=== PATIENT | male | born 1940 | race Caucasian/White ===

== ENCOUNTER 2024-02-04 16:46 | Emergency (ER) | payer MEDICARE, OTHER ==
[~2024-02-04 16:46] MED LIST: Sodium Chloride 0.9% 100 ML BAG ONE
[2024-02-04 17:08] LABS: #Basophils 0.1 thou/uL (0.0-0.2); #Eosinphils 0.4 thou/uL (0.0-0.7); #Lymphocytes 2.4 thou/uL (1.20-3.40); #Monocytes 0.5 thou/uL (0.11-0.59); #Neutrophils 5.5 thou/uL (1.40-6.50); %Eosinophils 4.6 % (0.0-10.0); %Monocytes 5.7 % (0.0-10.0); %Neutrophils 61.7 % (42.0-75.0); Hemoglobin 14.3 g/dL (14.0-18.0); Mean Corpuscular HGB CONC 32.6 g/dL (32.0-36.0); Mean Corpuscular Hemoglobin 30.8 pg (27.0-31.0); Mean Corpuscular Volume 94.6 fl (78.0-98.0); Mean Platelet Volume 8.6 fL (7.4-10.4); Platelet Count 186 10x3/uL (130-400); RBC Distribution Width 10.8 % (11.5-14.5); Red Blood Cell (RBC) Count 4.66 mill/uL (4.70-6.10); White Blood Cell (WBC) Count 8.8 10x3/uL (4.8-10.8)
[2024-02-04 17:12] LABS: PTT 27.7 sec (22.9-36.1); Prothrombin Time 13.5 sec (12.0-14.7)
[2024-02-04 17:17] LABS: ALT (SGPT) 9 U/L (8-55); AST (SGOT) 13 U/L (5-34); Albumin 4.2 g/dL (3.4-4.8); Alkaline Phosphatase 61 U/L (40-110); Anion Gap 15 mmol/L (10-20); BUN (Urea Nitrogen) 19 mg/dL (8.4-25.7); Bilirubin, Total 0.5 mg/dL (0.2-1.2); Calc. Creatinine Clearance 0 mL/min (70-130); Calcium 9.2 mg/dL (7.8-10.44); Carbon Dioxide 21 mmol/L (23-31); Chloride 105 mmol/L (98-107); Estimated GFR 56; Globulin 2.8 g/dL (2.4-3.5); Glucose 116 mg/dL (83-110); Sodium 137 mmol/L (136-145)
[2024-02-04 17:20] LABS: Troponin I Less than 0.010 ng/mL (< 0.028)
[2024-02-04] MEDS ORDERED: Sodium Chloride 0.9% 250 ML 250 ML ONE (17:20)
[2024-02-04] MEDS ORDERED: niCARdipine 25 MG/10 ML SDV ONE (17:20)
[2024-02-04 18:04] LABS: Bilirubin Negative (Negative); Blood, Urine Trace (Negative); Glucose, Urine (Dipstick) Negative (Negative); Ketone, Urine Negative (Negative); Leukocyte Negative (Negative); Nitrite Negative (Negative); Protein, Urine (Dipstick) 30 mg/dL (Neg-Trace); Urobilinogen 0.2 mg/dL (Less than 2); pH, Urine 7.5 (5.0-9.0)
[2024-02-04 18:07] LABS: Clarity Hazy (Clear)
[2024-02-04 18:10] LABS: Bacteria/HPF Rare-Few HPF (None Seen); CAUTI Indications for Culture Alt mental st,lethar; RBC/HPF 0-3 HPF (0-3); Squamous Epithelial 0-3 HPF (0-3); WBC/HPF None Seen HPF (0-3)
[2024-02-04 18:11] LABS: Urine Culture Reflex No No
[2024-02-04] MEDS ORDERED: Aspirin Chewable 81 MG TAB ONE (18:11)
[2024-02-04 18:14] LABS: Amphetamine Not Detected (NotDetected); Barbiturates Screen Not Detected (NotDetected); Benzodiazepine Screen Not Detected (NotDetected); Cocaine Metabolite Screen Not Detected (NotDetected); Methadone Not Detected (NotDetected); Methamphetamine Not Detected (NotDetected); Opiate Screen Not Detected (NotDetected); Oxycodone Screen Not Detected (NotDetected); Phencyclidine (PCP) Not Detected (NotDetected); THC/Cannabinoid Screen Not Detected (NotDetected); Tricyclic Screen Not Detected (NotDetected)
== END 2024-02-04 18:54 | disposition short-term general hospital (02) ==
LOC: MADERS 16:46
DX: H57.89 Other specified disorders of eye and adnexa (principal); I16.1 Hypertensive emergency; I10 Essential (primary) hypertension; F17.220 Nicotine dependence, chewing tobacco, uncomplicated; K21.9 Gastro-esophageal reflux disease without esophagitis; Z79.899 Other long term (current) drug therapy; Z55.6 Problems related to health literacy
CPT/HCPCS: 0042T; 36416; 70450; 80053; 80306; 81001; 85025; 93005; 94760; 96374; J3490; J7050